=== PATIENT | male | born 1985 ===

== ENCOUNTER 2016-11-19 22:39 | Emergency (ER) | payer OTHER ==
[2016-11-19 22:49] VITALS: O2SAT 99
[2016-11-19] MEDS ORDERED: Sodium Chloride 0.9% 1,000 ML IV ONE (23:26)
[2016-11-19] MEDS ORDERED: HYDROmorphone 1 mg/ml ISec IVP STA (23:26)
[2016-11-20 00:17] LABS: BASO % 0.9 % (0.0-2.0); EOS # 0.1 K/uL (0.0-0.7); EOS % 2.2 % (0.0-4.0); HEMATOCRIT 42.3 % (35.0-51.0); LYMPH % 36.4 % (20.0-40.0); MEAN CORPUSCULAR HEMOGLOBIN 30.2 pg (27.0-31.0); MEAN CORPUSCULAR HGB CONC 34.3 g/dL (33.0-37.0); MEAN PLATELET VOLUME 10.3 fL (7.2-11.7); MONO # 0.7 K/uL (0.0-0.8); MONO % 12.1 % (0.0-10.0); RED CELL DISTRIBUTION WIDTH 12.7 % (11.5-14.5); WHITE BLOOD COUNT 5.5 K/uL (4.8-10.8)
[2016-11-20] MEDS ORDERED: HYDROmorphone 1 mg/ml ISec ONE (00:24)
[2016-11-20] MEDS ORDERED: Sodium Chloride 0.9% 1,000 ML ONE (00:24)
--- NOTE | 2016-11-20 00:30 | CT ---
EXAM: CT Abdomen and Pelvis Without Intravenous Contrast CLINICAL HISTORY: 31 years old, male; Pain; Abdominal pain; Flank; Left lower quadrant (llq); Additional info: Left flank pain, radiating testicle TECHNIQUE: Axial computed tomography images of the abdomen and pelvis without intravenous contrast. This CT exam was performed using one or more of the following dose reduction techniques: automated exposure control, adjustment of the mA and/or kV according to patient size, and/or use of iterative reconstruction technique. Coronal and sagittal reformatted images were created and reviewed. COMPARISON: No relevant prior studies available. FINDINGS: Lower thorax: The bilateral lung bases are clear. ABDOMEN: Liver: No acute findings Gallbladder and bile ducts: No acute finding. No calcified stones. No intra-extrahepatic biliary ductal dilation. Pancreas: Limited evaluation secondary to the lack of intravenous contrast. Spleen: No acute findings. Adrenals: No acute findings. Kidneys and ureters: No obstructing stones. No hydronephrosis. PELVIS: Bladder: No acute findings. Reproductive: No acute findings. Appendix: The air filled appendix is of normal-caliber (series 3, image 125). ABDOMEN and PELVIS: Stomach and bowel: No acute findings. Peritoneum: No acute findings. Lymph nodes: Limited evaluation without intravenous contrast. Vasculature: No aortic aneurysm. Bones: No acute fracture. IMPRESSION: No obstructive uropathy. Normal appendix.
[2016-11-20 00:39] LABS: CHLORIDE 102 mmol/L (98-107); POTASSIUM 3.8 mmol/L (3.6-5.2); SODIUM 139 mmol/L (132-148)
--- NOTE | 2016-11-20 00:39 | C.PDOC ---
History Of Present Illness A 31 y/o male with a no hx of kidney stones, c/o left lower back pain that radiates to the left groin and left testicle for 3 days. Pt notes the pain is worse when sitting up and took percocet with little relief. Pt denies any urinary symptoms, hematuria, dysuria, trauma, fever, chills. Pt notes having a Hx of back problems with surgery done a year ago and is planning another surgery soon. Time Seen by Provider: 11/19/16 22:58 Chief Complaint (Nursing): Male Genitourinary History Per: Patient History/Exam Limitations: no limitations Onset/Duration Of Symptoms: Days Current Symptoms Are (Timing): Still Present Severity: Mild Associated Symptoms: denies: Fever, Chills, Urinary Symptoms Recent travel outside of the [place]: No Additional History Per: Patient Past Medical History Reviewed: Historical Data, Nursing Documentation, Vital Signs Vital Signs: Last Vital Signs Temp 98.2 F 11/19/16 22:48 Pulse 77 11/19/16 22:48 Resp 18 11/19/16 22:48 BP 135/91 H 11/19/16 22:48 Pulse Ox 99 11/20/16 00:44 Surgical History: Back Surgery (herniated disc 2014) Family History: States: Unknown Family Hx - Social History Hx Alcohol Use: Yes Hx Substance Use: No Review Of Systems Except As Marked, All Systems Reviewed And Found Negative. Constitutional: Negative for: Fever, Chills, Other (Trauma) Genitourinary: Positive for: Other (Left groin and testicle pain). Negative for : Dysuria, Incontinence, Hematuria Musculoskeletal: Positive for: Back Pain (Lower back ) Physical Exam - Physical Exam Appears: Non-toxic, In Acute Distress (Painful distress) Skin: Warm, Dry Head: Atraumatic, Normacephalic Cardiovascular: Rhythm Regular, No Murmur Respiratory: Normal Breath Sounds, No Rales, No Rhonchi, No Wheezing Gastrointestinal/Abdominal: Soft, Tenderness (Slight LLQ tenderness), No Guarding, No Rebound Back: Paraspinal Tenderness (Moderate left paralumbar tenderness), Other (Mild left flank tenderness) Male Genital: Testicular Tenderness (Left testicle. No discharge), No Scrotal Swelling Neurological/Psych: Oriented x3, Normal Speech, Normal Cognition ED Course And Treatment - Laboratory Results Result Diagrams: 11/20/16 00:06 11/20/16 00:06 O2 Sat by Pulse Oximetry: 99 (RA) Pulse Ox Interpretation: Normal - CT Scan/US ct Other Rad Studies (CT/US): Radiology Report Reviewed CT/US Interpretation: No obstructive uropathy seen, other carranza normal Medical Decision Making Medical Decision Making: Impression: 31 y/o male c/o lower back pain that radiates to the left groin and left testicle for 3 days Plans: -CT abd/Pel -US testicle -Dilaudid -Toradol -IV fluids Clinically likely to be "back pain" CT neg for stone Presently pending US of scrotum Disposition - Disposition Referrals: Non [facility] Provider, [Primary Care Provider] - Disposition Time: 00:55 Condition: GOOD - Clinical Impression Clinical Impression: Low back pain - Scribe Statement The provider has reviewed the documentation as recorded by the Scribe Mary gabriel All medical record entries made by the Scribe were at my direction and personally dictated by me. I have reviewed the chart and agree that the record accurately reflects my personal performance of the history, physical exam, medical decision making, and the department course for this patient. I have also personally directed, reviewed, and agree with the discharge instructions and disposition. Physician Patient Turnover Patient Signed Over To: Endy Sharpe Handoff Comments: Pending US, when neg home with pain meds
[2016-11-20 00:41] LABS: BILIRUBIN,TOTAL 0.6 mg/dL (0.2-1.3); CARBON DIOXIDE 27 mmol/L (22-30); GFR AFRICAN-AMERICAN > 60
[2016-11-20 00:42] LABS: ALB/GLOB RATIO 1.5 (1.0-2.1); ALKALINE PHOSPHATASE 71 U/L (38-126); ALT/SGPT 53 U/L (21-72); AST/SGOT 33 U/L (17-59); BLOOD UREA NITROGEN 13 mg/dL (9-20); CALCIUM 9.2 mg/dl (8.6-10.4); GLUCOSE,RANDOM 96 mg/dL (75-110); TOTAL PROTEIN 7.4 g/dL (6.3-8.3)
[2016-11-20 02:35] LABS: RBC URINE 2 /hpf (0-3); URINE BILIRUBIN NEGATIVE (NEGATIVE); URINE BLOOD NEGATIVE (NEGATIVE); URINE COLOR Yellow (YELLOW); URINE GLUCOSE (UA) NORMAL (Normal); URINE KETONE NEGATIVE (NEGATIVE); URINE LEUKOCYTE ESTERASE NEG Leu/uL (Negative); URINE PROTEIN NEGATIVE (NEGATIVE); URINE UROBILINOGEN NORMAL mg/dL (0.2-1.0); WBC URINE < 1 /hpf (0-5)
[2016-11-20 03:45] VITALS: BP 145/72; PULSE 81; RESP 17; TEMP 98.5
--- NOTE | 2016-11-20 09:12 | US ---
HISTORY: Left testicular pain and tenderness TECHNIQUE: Realtime sonography through the scrotum with color and doppler flow. COMPARISON: None Available. FINDINGS: RIGHT TESTICLE: Measures 4.8 x 2.1 x 2.9 cm. Homogeneous echotexture. Blood flow is demonstrated. RIGHT EPIDIDYMIS: Grossly unremarkable. LEFT TESTICLE: Measures 4.8 x 2.2 x 3.0 cm. Homogeneous echotexture. Blood flow is demonstrated. LEFT EPIDIDYMIS: Grossly unremarkable. HYDROCELE: Small left hydrocele. VARICOCELE: Left-sided varicocele. OTHER FINDINGS: None. IMPRESSION: Small left hydrocele. Left varicocele. Preliminary impression was provided by virtual radiologic.
== END 2016-11-20 03:45 | disposition home or self-care (01) ==
LOC: C.ER 22:39 → SUPCPDRO 22:39 → C.ER 11-20 03:45
DX: M54.5 Low back pain (principal); N43.3 Hydrocele, unspecified; I86.1 Scrotal varices
CPT/HCPCS: 74176; 76870; 80053; 81001; 85025; 96361; 96374; 96375; 99284; J1170; J1885; J7040